=== PATIENT | female | born 1975 | race Hispanic/Latino ===

== ENCOUNTER 2020-05-17 12:21 | Emergency (ER) | payer OTHER | END 2020-05-17 12:49 | disposition home or self-care (01) | LOC: EDH 12:21 | DX: L02.219 Cutaneous abscess of trunk, unspecified (principal); E11.9 Type 2 diabetes mellitus without complications; I10 Essential (primary) hypertension; Z98.890 Other specified postprocedural states | CPT/HCPCS: 10060 ==